=== PATIENT | female | born 1965 | race Caucasian/White ===

== ENCOUNTER → 2019-12-30 | Outpatient (CLI) | payer OTHER ==
[~2019-12-30] MED LIST: ATOR1TAB19 PO; LISI10TA4 PO; LORT5TAB PO; MOTR200T44 PO; MULTCAP PO; OXYB5TAB10 PO; OXYC1TAB23 PO; ZYLO300T6 PO
--- NOTE | 2020-02-20 08:40 | REP ---
CT ABDOMEN AND PELVIS WITHOUT CONTRAST HISTORY: Kidney stone. TECHNIQUE: CT abdomen and pelvis performed without oral or IV contrast. Sagittal and coronal reconstruction images are performed. FINDINGS: Visualized lung bases are clear. The liver demonstrates diffuse fatty infiltration. There is a 2.3 cm gallstone in the fundus of the gallbladder without evidence of gallbladder wall thickening. Spleen is normal in size. The adrenal glands are normal. A tiny calcification is seen in the tail of the pancreas. No other pancreatic abnormality is seen. There is mild right hydronephrosis, which is caused by an 8-mm calculus in the proximal right ureter. There is also a punctate calcification in the right upper pole collecting system. There is no left hydronephrosis. There is a punctate calcification in the left lower pole collecting system. There is a cyst of the mid left kidney, which measures 6.7 cm in diameter. There is mild atherosclerotic calcification of the abdominal aorta without aneurysm. There is no adenopathy. There is no free air or free fluid. There is a small umbilical hernia containing fat. There is no bowel wall thickening. The appendix is normal. There is no pelvic mass. The patient has had a hysterectomy. The urinary bladder is mildly distended and grossly unremarkable. There are degenerative changes of the spine. IMPRESSION: There is an 8-mm calculus in the proximal right ureter causing mild right hydronephrosis. Punctate intrarenal calcification is seen in each renal collecting system. There is a left renal cyst. There is a gallstone in the fundus of the gallbladder measuring 2.3 cm in diameter. There is diffuse fatty infiltration of the liver. There is a small umbilical hernia containing fat. MTDD
== END ==
LOC: M RAD 08:00
PROVIDERS: ATTEND Nurse Practitioner Family
DX: N20.0 Calculus of kidney (principal); N13.30 Unspecified hydronephrosis; K80.20 Calculus of gallbladder without cholecystitis without obstruction

== ENCOUNTER 2020-01-21 07:56 | Day surgery (SDC) | payer OTHER ==
[~2020-01-21] VITALS: Ht 172.7 cm; Wt 125.6 kg
[~2020-01-21 07:56] MED LIST changes: +LIDOCAINE 1% MDV 20ML VIAL SQ PRN; -OXYB5TAB10 PO; -OXYC1TAB23 PO
[2020-01-21] MEDS ORDERED: ceFAZolin SOD 2 GM in IV 1 EA IV ONE (08:30)
[2020-01-21] MEDS ORDERED: LR 1,000 ML IV ONE (08:30)
[2020-01-21] MEDS ORDERED: ceFAZolin SOD 1 GM in D5W MINI-BAG PLUS 50 ML IV ONE (08:30)
[2020-01-21] MEDS ORDERED: fentaNYL 100 MCG/2 ML INJECTION (J3010) As Ordered ONE ×2 (08:52→10:54)
[2020-01-21] MEDS ORDERED: LIDOCAINE 2% 100MG/5ML SDV (FOR ANES.) As Ordered ONE (08:52)
[2020-01-21] MEDS ORDERED: CONRAY-60 60% 50ML VIAL (Q9961) As Ordered ONE (09:27)
[2020-01-21] MEDS ORDERED: propofoL 200 MG/20 ML VIAL As Ordered ONE (09:54)
[2020-01-21] MEDS ORDERED: ONDANSETRON 4MG/2ML VIAL As Ordered ONE (09:54)
[2020-01-21] MEDS ORDERED: dexameTHASONE 4 MG/ML 1ML VIAL (J1100 PER 1MG) As Ordered ONE (09:54)
[2020-01-21] MEDS ORDERED: MIDAZOLAM INJ 2MG/2ML VIAL (J2250 PER 1MG) As Ordered ONE (10:00)
[2020-01-21] MEDS ORDERED: OXYC1TAB23 PO (11:32)
[2020-01-21] MEDS ORDERED: OXYB5TAB10 PO (11:32)
[2020-01-21 12:00] VITALS: BP 142/67
[2020-01-21] MEDS ORDERED: METOCLOPRAMIDE INJ 10MG/2ML VIAL (J2765 PER 1) IV PRN (12:00)
[2020-01-21] MEDS ORDERED: PERCOCET 5MG/325MG TAB PO PRN ×2 (12:00)
[2020-01-21] MEDS ORDERED: LR 1,000 ML IV SCH (12:00)
[2020-01-21] MEDS ORDERED: fentaNYL 100 MCG/2 ML INJECTION (J3010) IV PRN (12:00)
[2020-01-21] MEDS ORDERED: ONDANSETRON 4MG/2ML VIAL IV PRN (12:00)
--- NOTE | 2020-01-28 16:34 | REP ---
RETROGRADE PYELOGRAM: 7-VIEWS HISTORY: Stent placement. 52 seconds of fluoroscopy time is reported. FINDINGS: A sequence of seven last image hold fluoroscopically obtained spot radiographs of the abdomen document right ureteral cannulation, contrast injection, hydronephrosis, and double pigtailed ureteral stent placement. CORTNEY
[2020-02-04 17:07] LABS: CA Oxalate Dihy 10 % (.); Ca Ox Monohydrate 60 % (.); Size 3x2 mm (.); Uric Acid 30 % (.)
--- NOTE | 2020-02-09 12:10 | RO ---
DATE OF OPERATION: January 21, 2020 PREOPERATIVE DIAGNOSIS: Right ureteral stone. POSTOPERATIVE DIAGNOSIS: Right ureteral stone. PROCEDURES: 1. Cystoscopy. 2. Right ureteroscopy with laser lithotripsy and basket extraction of stone. 3. Ureteral balloon dilation. 4. Right retrograde pyelogram with intraoperative interpretative images. 5. Right ureteral stent placement. SURGEON: Jermain Alfred MD. MANAGER BUSINESS INFORMATION: None. ANESTHESIA: General. OPERATIVE INDICATIONS: This is a 54-year-old female who was found to have an obstructing 9-mm right ureteral stone. She was brought to the operating room today for treatment. DESCRIPTION OF PROCEDURE: The patient was brought to the operating room and general anesthesia was induced. Prophylactic antibiotics were infused. She was placed in the dorsal lithotomy position, prepped, and draped in the usual sterile fashion. A rigid cystoscope was inserted into the urethral meatus and advanced into the bladder. A guidewire was advanced up the right collecting system. I then advanced a ureteral access sheath up the right collecting system. I went up the ureteral access sheath with the flexible ureteroscope, and within the mid to distal ureter, a 9-mm stone was seen. The stone was fragmented into smaller pieces using a 272 micron laser fiber. While doing this, a large amount of stone fragments floated up into the proximal ureter and then into the kidney. I then went up the ureter with the flexible ureteroscope and into the kidney. Of note, while going up into the mid ureter, I had a significant amount of difficulty due to narrowing of the ureter. I was ultimately able to get the scope into the kidney. While trying to go back up into the kidney with the scope, I could not get it in again because of the narrowing. I therefore took the ureteroscope and the access sheath out. I advanced a 12-Kazakh balloon dilator into the right ureter. I then dilated the right ureter in the area where the narrowing was. Each time that I inflated the balloon, I left it up for approximately a minute. Once that was done, I took the balloon dilator out and put the access sheath back into the right ureter. I went up the right ureter with the flexible ureteroscope, and at this point, I could get the scope past the narrowing area and then into the kidney. Once inside the kidney, the remaining stone fragments were thoroughly fragmented into tiny pieces that should be small enough to pass. Once done, a retrograde pyelogram was performed and this was notable for moderate right hydronephrosis with no extravasation. I then withdrew the ureteroscope along with the access sheath and no additional stones were seen. I then utilized the wire to advance a 6-Kazakh x 22-32 cm JJ ureteral stent into the right collecting system. The wire was removed and there was an adequate curl of the stent in the right renal pelvis and in the bladder. The bladder was emptied of all fluid. This marked the conclusion of the procedure. The patient was taken out of the dorsal lithotomy position, awakened from anesthesia, and transferred to the recovery room in stable condition. ESTIMATED BLOOD LOSS: 5 mL. COMPLICATIONS: None. SPECIMEN: Kidney stone fragments. PLAN: I will leave the patient's stent in for at least 3-4 weeks. I will have her follow up at that time for cystoscopy and stent removal and get a KUB prior. CORTNEY
== END 2020-01-21 12:34 | disposition home or self-care (01) ==
LOC: M SDC 07:56
PROVIDERS: ATTEND Urology
DX: N20.0 Calculus of kidney (principal); I10 Essential (primary) hypertension; E78.5 Hyperlipidemia, unspecified; Z79.899 Other long term (current) drug therapy; Z88.0 Allergy status to penicillin
CPT/HCPCS: 52356; 74420; 82365; 88300; C1769; C1894; C2617; J0690; J1100; J2250; J2405; J3010; Q9961

== ENCOUNTER 2022-11-22 10:01 | Day surgery (SDC) | payer OTHER ==
[~2022-11-22] VITALS: Ht 172.7 cm; Wt 133.8 kg
[~2022-11-22 10:01] MED LIST changes: -LIDOCAINE 1% MDV 20ML VIAL SQ PRN; +LISI10TA22 PO; -LISI10TA4 PO; +ONDA-83 PO; +OXYB5TAB10 PO; +OXYC1TAB23 PO; +TAMS1CAP17 PO; +ceFAZolin SOD 2 GM in IV 1 EA IV ONE
[2022-11-22] MEDS ORDERED: LR 1,000 ML IV SCH ×2 (11:05→13:50)
[2022-11-22] MEDS ORDERED: fentaNYL 100 MCG/2 ML INJECTION As Ordered ONE (11:23)
[2022-11-22] MEDS ORDERED: ACETAMINOPHEN 1000MG 100ML IV BAG As Ordered ONE (11:23)
[2022-11-22] MEDS ORDERED: MIDAZOLAM INJ 2MG/2ML VIAL As Ordered ONE (11:23)
[2022-11-22] MEDS ORDERED: LIDOCAINE 2% 100MG/5ML SDV (FOR ANES.) As Ordered ONE (11:24)
[2022-11-22] MEDS ORDERED: KETOROLAC 60MG 2ML VIAL As Ordered ONE (11:24)
[2022-11-22] MEDS ORDERED: propofoL 200 MG/20 ML VIAL As Ordered ONE (11:24)
[2022-11-22] MEDS ORDERED: ONDANSETRON 4MG 2ML VIAL As Ordered ONE (11:24)
[2022-11-22] MEDS ORDERED: ISOVUE-300 61% 100ML VIAL As Ordered ONE (12:04)
[2022-11-22] MEDS ORDERED: ceFAZolin SOD 1 GM in D5W MINI-BAG PLUS 50 ML IV ONE (12:25)
[2022-11-22] MEDS ORDERED: HYDROmorphone HCL 2MG/ML 1ML VIAL As Ordered ONE (12:44)
[2022-11-22] MEDS ORDERED: HYDROMORPHONE HCL 0.5 MG/ 0.5 ML SYRINGE IV PRN (13:50)
[2022-11-22] MEDS ORDERED: ONDANSETRON 4MG 2ML VIAL IV PRN (13:50)
[2022-11-22] MEDS ORDERED: fentaNYL 100 MCG/2 ML INJECTION IV PRN (13:50)
[2022-11-22] MEDS ORDERED: oxyCODONE 5MG TAB PO PRN (13:50)
[2022-11-22] MEDS ORDERED: PERCOCET 5MG/325MG TAB PO PRN (14:05)
[2022-11-22] MEDS ORDERED: oxyBUTYnin 5 MG TAB PO PRN (14:05)
[2022-11-22] MEDS ORDERED: OXYB-54 PO (14:15)
[2022-11-22 15:00] VITALS: BP 139/64; TEMP 97.9; O2SAT 98
[2022-12-01 23:07] LABS: Ca Ox Monohydrate 10 % (.); Size 4x4 mm (.); Uric Acid 90 % (.)
== END 2022-11-22 15:16 | disposition home or self-care (01) ==
LOC: M SDC 10:01
PROVIDERS: ATTEND Urology
DX: N20.1 Calculus of ureter (principal); J98.9 Respiratory disorder, unspecified; Z87.442 Personal history of urinary calculi; Z88.0 Allergy status to penicillin; Z87.891 Personal history of nicotine dependence
CPT/HCPCS: 52356; 74420; 82365; C1769; C1894; C2617; J0131; J0690; J1100; J1170; J1885; J2250; J2405; J3010; Q9967

== ENCOUNTER → 2023-06-18 | Outpatient (CLI) | payer OTHER ==
[~2023-06-18] MED LIST changes: +OXYB-54 PO; -OXYB5TAB10 PO; +OXYB5TAB11 PO; -ceFAZolin SOD 2 GM in IV 1 EA IV ONE
== END ==
LOC: M WHC 10:38
PROVIDERS: ATTEND Urology
DX: N20.0 Calculus of kidney (principal); N28.1 Cyst of kidney, acquired; K80.20 Calculus of gallbladder without cholecystitis without obstruction